=== PATIENT | female | born 1960 | race Caucasian/White ===

== ENCOUNTER → 2022-11-27 08:18 | Outpatient (CLI) | payer OTHER, SELFPAY ==
--- NOTE | ~2022-11-27 | XR_ITS ---
EXAMINATION:XR_[id number]_CR DATE: 11/27/2022 09:09 INDICATION: Cervical radiculopathy TECHNIQUE: AP, lateral, lateral swimmers and odontoid views of the cervical spine are provided. COMPARISON: None FINDINGS: Straightening of the normal cervical lordosis. Mild upper thoracic levocurvature. Odontoid is intact. 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 Vertebral body heights are normal. Moderate disc heigh t loss with mild degenerative endplate changes and moderate uncovertebral osteoarthritis at C4-C5 and C5-C6. Mild disc height loss and mild uncovertebral osteoarthritis at C3-C4. Multilevel mild to mode rate cervical facet osteoarthritis most prominent on the right at C3-C4 through C5-C6. Prevertebral soft tissues are normal. Visualized portion of the upper lungs are clear. IMPRESSION: 1. Moderate cervical spondylosis. Reviewed, dictated and finalized at location A.
== END ==
PROVIDERS: PCP Family Medicine; Visit Provider Physician Assistant
DX: M47.22 Other spondylosis with radiculopathy, cervical region (principal)
CPT/HCPCS: 72040

== ENCOUNTER → 2022-12-03 14:07 | Outpatient (CLI) | payer OTHER, SELFPAY ==
--- NOTE | ~2022-12-03 | XR_ITS ---
EXAMINATION: XR mandible min 4V DATE: 12/03/2022 15:01 INDICATION: Unspecified temporomandibular joint disorder. TECHNIQUE: 5 views of the mandible were obtained. COMPARISON: None. FINDINGS: Bone alignment is normal. No fracture. The temporomandibular joints are normal. IMPRESSION: 1. Normal temporomandibular joints. Reviewed, dictated and finalized at location A.
== END ==
PROVIDERS: PCP Family Medicine; Visit Provider Family Medicine
DX: M26.609 Unspecified temporomandibular joint disorder, unspecified side (principal)
CPT/HCPCS: 70110

== ENCOUNTER 2023-09-06 19:23 | Emergency (ER) | payer MEDICARE, OTHER, SELFPAY ==
--- NOTE | ~2023-09-06 | CT_ITS ---
EXAMINATION: CTA brain carotid DATE: 09/07/2023 00:42 INDICATION: Headache. TECHNIQUE: Computed tomographic angiography (CTA) of the head was performed without and with 100 mL O mnipaque-350 intravenous contrast. CTA of the neck was performed with intravenous contrast. Automated exposure control and iterative reconstruction technique were employed. The dose-length product was 1 757.75 mGy-cm. Maximum intensity projection and volume rendered 3D-reconstructions were created by florence pineda technologist on a separate workstation. COMPARISON: None. FINDINGS: HEAD CTA: There is no intracranial hemorrhage, acute infarction, or abnormal intracranial mass lesion . The ventricles are normal in size. The orbits are normal. There is mild mucosal thickening in the p aranasal sinuses. The mastoid air cells are normal. The vertebral arteries are codominant. There is n o significant stenosis of basilar artery or the posterior cerebral arteries. There is no significant stenosis of the intracranial internal carotid arteries or anterior or middle cerebral arteries. Anter ior communicating artery is normal. The posterior communicating artery is normal. 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 There is no aneurysm. NECK CTA: There are no pathologically enlarged lymph nodes. There is no significant stenosis of the v ertebral arteries. There is minimal plaque in the proximal internal carotid arteries. There is 0% tamie nosis of the proximal right internal carotid artery relative to normal distal artery lumen diameter ( NASCET criteria). There is 0% stenosis of the proximal left internal carotid artery relative to claudia l distal artery lumen diameter. There is moderate cervical spondylosis. IMPRESSION: 1. Normal brain. No aneurysm or significant intracranial arterial stenosis. 2. 0% stenosis of the proximal internal carotid arteries relative to normal distal artery lumen diame ters (NASCET criteria). Reviewed, dictated and finalized at location A. [employer] IMPRESSION: 1. Normal brain. No aneurysm or significant intracranial arterial stenosis. 2. 0% stenosis of the proximal internal carotid arteries relative to normal dis sneha artery lumen diameters (NASCET criteria).
[2023-09-06 19:48] VITALS: BP 148/80; PULSE 74; RESP 16; TEMP 36.9; O2SAT 100
--- NOTE | 2023-09-06 19:51 | ECG_ITS ---
Measurements Intervals [place] Rate: 76 P: 61 IN: 190 QRS: 27 QRSD: 94 T: 32 QT: 392 QTc: 443 Interpretive Statements SINUS RHYTHM NO PREVIOUS ECG AVAILABLE FOR COMPARISON Electronically Signed On 09-07-2023 8:40:40 [employer] by Esteban Bruce M.D.
[2023-09-06] MEDS: KETOROLAC 30 MG/ML VIAL (*BKC) 15 MG IV PUSH (23:20)
[2023-09-06] MEDS: diphenhydrAMINE HCl INJ 50 MG/ML VIAL IV PUSH (23:20)
[2023-09-06] MEDS: PROCHLORPERAZINE EDISYLATE 10 MG/2 ML VIAL IV PUSH (23:21)
[2023-09-06] MEDS: SODIUM CHLORIDE 0.9% IV 1,000 ML 999 ML IV CONT (23:21)
[2023-09-06 23:23] VITALS: BP 146/78; PULSE 72; RESP 15; O2SAT 100
[2023-09-06 23:40] LABS: Basophils Percent Auto 0.5 % (0.2-1.2); Eosinophils Absolute Auto 0.1 K/mm3 (0-0.3); Eosinophils Percent Auto 1.6 % (0-4.4); Hematocrit 37.6 % (37.0-47.0); Hemoglobin 12.3 g/dL (12.0-15.0); Immature Granulocyte Absolute 0.02 K/mm3 (0.00-0.031); Immature Granulocyte Percent A 0.3 % (0-0.5); Lymphocytes Absolute Auto 3.54 K/mm3 (0.9-3.2); Lymphocytes Percent Auto 46.1 % (18.3-44.2); Mean Corpuscular HGB Conc 32.7 g/dl (32-36); Mean Corpuscular Hemoglobin 28.5 pg (26-34); Mean Platelet Volume 9.5 fl (7.4-10.4); Monocytes Absolute Auto 0.7 K/mm3 (0.1-0.6); Monocytes Percent Auto 9.1 % (2.6-8.5); Neutrophils Absolute Auto 3.3 K/mm3 (1.3-6.7); Neutrophils Percent Auto 42.4 % (45.5-73.1); Platelet Count Result 225 k/mm3 (150-375); Red Blood Count 4.32 M/mm3 (4.2-5.4); Red Cell Distribution Width 12.3 % (11.5-14.5); White Blood Count 7.7 K/mm3 (4.5-10.0)
--- NOTE | 2023-09-06 23:41 | ED.GENADULT ---
HPI - General Adult General Chief complaint: Unspecified Stated complaint: Blurred vision, slight headache, Time Seen by Provider: 09/06/23 22:40 History of Present Illness HPI narrative: patient is a 63-year-old female who presents emergency department with chief complaint of headaches and blurred vision. Patient reports the last 3 days she has been having episodes of blurry vision and a frontal headache. The patient states that she has had no fever denies focal neurological deficit patient states that it is in both eyes whenever the episodes happen noticed that she feels a little off whenever she is walking when this happens but denies focal motor weakness. Patient reports the headache is doing better and reports that she currently has no blurry vision. Related Data Allergies Allergy/AdvReac Type Severity Reaction Status Date / Time No Known Allergies Allergy Verified 06/09/19 09:45 Review of Systems Review of Systems: A 10 system review of systems was completed on the patient and is negative except for what is stated in the HPI. Nursing and ancillary documentation was reviewed. Exam Narrative: GENERAL: Well-appearing, well-nourished, and in no acute distress. HEAD: Normocephalic, atraumatic. EYES: PERRLA and EOMI. ENT: Nares clear, no rhinorrhea or epistaxis. Mucous membranes moist. NECK: Supple. CHEST: Clear to auscultation. No respiratory distress. HEART: Regular rate and rhythm. No murmur heard. Normal peripheral pulses. ABDOMEN: Soft, nontender, nondistended, normal active bowel sounds. EXTREMITIES: Normal range of motion. No edema. SKIN: Warm, dry, no rash. NEURO: No focal deficits. Alert and oriented x3. PSYCH: Normal mood and affect. Course Vital Signs Vital signs: Vital Signs Temperature 36.9 C 09/06/23 19:48 Pulse Rate 74 09/06/23 19:48 Respiratory Rate 16 09/06/23 19:48 Blood Pressure 148/80 H 09/06/23 19:48 Pulse Oximetry 100 09/06/23 19:48 Oxygen Delivery Room Air 09/06/23 19:48 Temperature 36.9 C 09/06/23 19:48 Pulse Rate 72 09/06/23 23:23 Respiratory Rate 15 09/06/23 23:23 Blood Pressure 146/78 H 09/06/23 23:23 Pulse Oximetry 100 02/05/24 23:23 Oxygen Delivery Room Air 09/06/23 19:48 Medical Decision Making [facility] Narrative Medical decision making narrative: differential diagnosis includes migraine headache, CVA, large vessel occlusion, carotid stenosis laboratory studies were obtained on the patient which within normal limits CTA head and neck was obtained that showed no acute findings patient received typical migraine cocktail and is feeling much better at this time Vital Signs Vital Signs: Vital Signs Temperature 36.9 C 09/06/23 19:48 Pulse Rate 74 09/06/23 19:48 Respiratory Rate 16 09/06/23 19:48 Blood Pressure 148/80 H 09/06/23 19:48 Pulse Oximetry 100 09/06/23 19:48 Oxygen Delivery Room Air 09/06/23 19:48 Temperature 36.9 C 09/06/23 19:48 Pulse Rate 72 09/06/23 23:23 Respiratory Rate 15 09/06/23 23:23 Blood Pressure 146/78 H 09/06/23 23:23 Pulse Oximetry 100 09/06/23 23:23 Oxygen Delivery Room Air 09/06/23 19:48 Lab Data 09/06/23 23:24 09/06/23 23:24 Labs: Lab Results 09/06/23 Range/Units 23:24 WBC 7.7 (4.5-10.0) K/mm3 RBC 4.32 (4.2-5.4) M/mm3 Hgb 12.3 (12.0-15.0) g/dL Hct 37.6 (37.0-47.0) % MCV 87.0 (80-100) fl MCH 28.5 (26-34) pg MCHC 32.7 (32-36) g/dl RDW 12.3 (11.5-14.5) % Plt Count 225 (150-375) k/mm3 MPV 9.5 (7.4-10.4) fl Immature Gran % (Auto) 0.3 (0-0.5) % Neut % (Auto) 42.4 L (45.5-73.1) % Lymph % (Auto) 46.1 H (18.3-44.2) % Stanton % (Auto) 9.1 H (2.6-8.5) % Eos % (Auto) 1.6 (0-4.4) % Baso % (Auto) 0.5 (0.2-1.2) % Lymph # (Auto) 3.54 H (0.9-3.2) K/mm3 Stanton # (Auto) 0.7 H (0.1-0.6) K/mm3 Eos # (Auto) 0.1 (0-0.3) K/mm3 Baso # (Auto) 0.0 (0.0-0.1) K/mm3 Abs
[2023-09-07 00:02] LABS: Troponin I < 0.012 ng/mL (0.000-0.034)
[2023-09-07 00:04] LABS: Alanine Aminotransferase 17 U/L (6-35); Alkaline Phosphatase 69 U/L (38-126); Anion Gap 5 mmol/L (8-16); Aspartate Amino Transferase 21 U/L (14-36); Bilirubin,Total 0.5 mg/dL (0.2-1.3); Blood Urea Nitrogen 13 mg/dL (7-17); Calcium 10.1 mg/dL (8.4-10.2); Carbon Dioxide 31 mmol/L (22-30); Chloride 102 mmol/L (98-107); Estimated CRCL calculation 62 ml/min; Estimated Glomerular Filt Rate > 60; Glucose 102 mg/dL (65-110); Magnesium 2.3 mg/dL (1.6-2.3); Potassium 3.7 mmol/L (3.4-5.0); Sodium 138 mmol/L (137-145)
[2023-09-07 02:08] VITALS: BP 116/66; PULSE 78; RESP 14; O2SAT 99
== END 2023-09-07 02:08 | disposition home or self-care (01) ==
PROVIDERS: Emergency Provider Emergency Medicine; PCP Family Medicine
DX: R51.9 Headache, unspecified (principal)
CPT/HCPCS: 36415; 70496; 70498; 80053; 83735; 84484; 85025; 93005; 96361; 96374; 96375; 99284; J0780; J1200; J1885; J7030; Q9967

== ENCOUNTER 2024-06-02 13:47 | Outpatient (CLI) | payer MEDICARE, OTHER, SELFPAY ==
--- NOTE | ~2024-06-02 | CT_ITS ---
EXAMINATION: CT facial bones wo con DATE: 06/02/2024 14:19 INDICATION: Jaw pain TECHNIQUE: Computed tomography (CT) of the facial bones and maxillofacial region was performed withou t intravenous contrast. Automated exposure control and iterative reconstruction technique were employ ed. Exam dose: 357.01 mGy-cm total exam DLP. COMPARISON: 12/03/2022 mandible FINDINGS: Bilateral hyperostosis frontalis interna, not likely of any clinical significance. The frontozygomatic sutures, orbital rims and mcguire, zygomatic arches, nasal bones, anterior nasal sp ine, maxillary bones, pterygoid plates and alveolar ridge are all intact, without evidence of fractur e or bone destruction. Normal alignment at the temporomandibular joints. No mandibular fracture, dislocation or bone destruc tion. No significant abnormality of the mastoid air cells or paranasal sinuses. Moderately severe degenerative disc disease at C4-5 and C5-6. IMPRESSION: No significant abnormality of the mandible or temporomandibular joints Reviewed, dictated and finalized at Location [facility]. Reviewed, dictated and finalized at location A. IMPRESSION: No significant abnormality of the mandible or temporomandibular rani ints
== END 2024-06-02 13:48 | disposition home or self-care (01) ==
PROVIDERS: Visit Provider Nurse Practitioner Family
DX: M26.609 Unspecified temporomandibular joint disorder, unspecified side (principal)
CPT/HCPCS: 70486